=== PATIENT | male | born 1960 | race Native Hawaiian/Other Pacific Islander ===

== ENCOUNTER 2017-11-07 12:01 | Emergency (ER) | payer MEDICAID, OTHER ==
[~2017-11-07] VITALS: Ht 170.2 cm; Wt 94.5 kg
[2017-11-07] MEDS ORDERED: LIDOcaine 1% 30ml vial SQ STA (12:17)
[2017-11-07] MEDS ORDERED: HYDROcodone/acetaminophen 10/325mg tab PO ONE (12:20)
[2017-11-07] MEDS ORDERED: HYDR-565 PO (13:28)
[2017-11-07 13:43] VITALS: BP 127/74
== END 2017-11-07 13:45 | disposition home or self-care (01) ==
LOC: ER 12:02
DX: S81.812A Laceration without foreign body, left lower leg, initial encounter (principal); W31.89XA Contact with other specified machinery, initial encounter; Y93.89 Activity, other specified; Y92.89 Other specified places as the place of occurrence of the external cause; Y99.9 Unspecified external cause status
CPT/HCPCS: 12002; 73590; 99284; A6446; A6449; J3490

== ENCOUNTER 2017-11-18 10:07 | Emergency (ER) | payer MEDICAID, OTHER ==
[~2017-11-18] VITALS: Ht 171.4 cm; Wt 96.8 kg
[~2017-11-18 10:07] MED LIST: HYDR-565 PO
[2017-11-18 10:39] LABS: CLARITY,URINE CLEAR (Clear); COLOR,URINE YELLOW (Yellow); GLUCOSE, URINE NEGATIVE (Neg); KETONES,URINE NEGATIVE (Neg); LEUKOCYTE ESTERASE ,URINE NEGATIVE (Neg); NITRITES, URINE NEGATIVE (Neg); OCCULT BLOOD,URINE NEGATIVE (Neg); PROTEIN,URINE NEGATIVE (Neg); UROBILINOGEN,URINE 0.2 E.U/dL (0.2-1.0)
[2017-11-18 10:43] LABS: UA COLLECTION TYPE CLN CATCH MIDSTREAM
[2017-11-18 11:01] LABS: BASOPHILS % (AUTO) 0.6 % (0-1); EOSINOPHILS # (AUTO) 0.3 X10'3 (0-0.9); HEMATOCRIT 42.5 % (42.0-52.0); HEMOGLOBIN 14.5 g/dl (14.0-17.9); LYMPHOCYTES # (AUTO) 1.3 X10'3 (1.1-4.8); MEAN CORPUSCULAR HEMOGLOBIN 32.1 PG (27.0-31.0); MEAN CORPUSCULAR HGB CONC 34.1 % (33.0-36.5); MEAN CORPUSCULAR VOLUME 94.2 FL (78-98); MEAN PLATELET VOLUME 8.8 FL (7.4-10.4); MONOCYTES # (AUTO) 0.4 X10'3 (0-0.9); MONOCYTES % (AUTO) 9.4 % (2-12); NEUTROPHILS # (AUTO) 2.2 X10'3 (1.8-7.7); PLATELET COUNT 197 X10'3 (140-440); RED BLOOD COUNT 4.51 X10'6 (4.70-6.10); RED CELL DISTRIBUTION WIDTH 11.7 % (11.5-14.5); WHITE BLOOD COUNT 4.2 X10'3 (4.5-11.0)
[2017-11-18 11:04] LABS: ALANINE AMINOTRANSFERASE 47 U/L (12-78); ALBUMIN 3.4 G/DL (3.4-5.0); ALBUMIN/GLOBULIN RATIO 0.9 (1.1-1.5); ALKALINE PHOSPHATASE 48 IU/L (46-116); ANION GAP 5 (8-16); ASPARTATE AMINO TRANSFERASE 17 U/L (10-37); BILIRUBIN,TOTAL 0.3 MG/DL (0.1-1.0); BLOOD UREA NITROGEN 12 MG/DL (7-18); CALCIUM 8.6 MG/DL (8.5-10.1); CHLORIDE 108 MMOL/L (99-107); GLUCOSE 100 MG/DL (70-104); POTASSIUM 4.2 MMOL/L (3.5-5.1); SODIUM 142 MMOL/L (135-145); TOTAL CARBON DIOXIDE 29.2 MMOL/L (24-32); TOTAL PROTEIN 7.2 G/DL (6.4-8.2); eGFR 77 ML/MIN
[2017-11-18] MEDS ORDERED: normal saline 1000ml 1,000 ML IV ONE (12:21)
[2017-11-18] MEDS ORDERED: mag hydrox/Alum hydrox/simeth 30ml oral suspension PO ONE (12:50)
[2017-11-18] MEDS ORDERED: pantoprazole 40 MG vial IV ONE (12:50)
[2017-11-18] MEDS ORDERED: metoclopramide 5 mg/ml inj IV ONE (12:50)
[2017-11-18 13:08] LABS: LIPASE 216 U/L (73-393)
[2017-11-18] MEDS ORDERED: morphine 5 MG/ML injection IV ONE (14:00)
[2017-11-18 14:44] LABS: CRYPTOSPORIDIUM AG NEGATIVE (Neg); GIARDIA LAMBLIA AG NEGATIVE (Neg)
[2017-11-18] MEDS ORDERED: morphine 2 MG/ML inj. syringe IV ONE (14:45)
[2017-11-18] MEDS ORDERED: RANI300T4 PO (14:55)
[2017-11-18] MEDS ORDERED: OMEP40CA37 PO (14:55)
[2017-11-18 15:01] VITALS: BP 130/90
[2017-11-23] MEDS ORDERED: SUCR1ORA2 PO (09:23)
== END 2017-11-18 15:03 | disposition home or self-care (01) ==
LOC: ER 10:07
DX: K29.00 Acute gastritis without bleeding (principal); Z87.442 Personal history of urinary calculi; Z79.899 Other long term (current) drug therapy
CPT/HCPCS: 36415; 76705; 80053; 81003; 83690; 85025; 85610; 87045; 87046; 87328; 87329; 87336; 96361; 96374; 96375; 99285; C9113; J2765; J7030; J2270

== ENCOUNTER 2017-12-03 10:56 | Inpatient (IN) | payer MEDICAID, OTHER ==
[~2017-12-03] VITALS: Ht 170.2 cm; Wt 87.0 kg
[~2017-12-03 10:56] MED LIST changes: +OMEP40CA37 PO; +RANI300T4 PO; +SUCR1ORA2 PO
[2017-12-03 11:24] LABS: BASOPHILS % (AUTO) 0.4 % (0-1); EOSINOPHILS # (AUTO) 0.1 X10'3 (0-0.9); EOSINOPHILS % (AUTO) 2.1 % (0-6); HEMATOCRIT 45.3 % (42.0-52.0); HEMOGLOBIN 15.9 g/dl (14.0-17.9); LYMPHOCYTES # (AUTO) 1.4 X10'3 (1.1-4.8); MEAN CORPUSCULAR HEMOGLOBIN 32.4 PG (27.0-31.0); MEAN CORPUSCULAR HGB CONC 35.2 % (33.0-36.5); MEAN CORPUSCULAR VOLUME 92.1 FL (78-98); MONOCYTES # (AUTO) 0.5 X10'3 (0-0.9); MONOCYTES % (AUTO) 7.3 % (2-12); NEUTROPHILS # (AUTO) 4.6 X10'3 (1.8-7.7); NEUTROPHILS % (AUTO) 69.2 % (42-75); PLATELET COUNT 244 X10'3 (140-440); RED BLOOD COUNT 4.92 X10'6 (4.70-6.10); RED CELL DISTRIBUTION WIDTH 12.5 % (11.5-14.5); WHITE BLOOD COUNT 6.6 X10'3 (4.5-11.0)
[2017-12-03 11:38] LABS: ALANINE AMINOTRANSFERASE 43 U/L (12-78); ALBUMIN 3.8 G/DL (3.4-5.0); ALBUMIN/GLOBULIN RATIO 0.9 (1.1-1.5); ALKALINE PHOSPHATASE 53 IU/L (46-116); ANION GAP 9 (8-16); ASPARTATE AMINO TRANSFERASE 19 U/L (10-37); BILIRUBIN,TOTAL 0.3 MG/DL (0.1-1.0); BLOOD UREA NITROGEN 17 MG/DL (7-18); BUN/CREATININE RATIO 15.5 (5.4-32.0); CALCIUM 9.5 MG/DL (8.5-10.1); CHLORIDE 104 MMOL/L (99-107); GLUCOSE 100 MG/DL (70-104); LIPASE 254 U/L (73-393); POTASSIUM 4.5 MMOL/L (3.5-5.1); SODIUM 140 MMOL/L (135-145); eGFR 69 ML/MIN
[2017-12-03 12:26] LABS: CLARITY,URINE SLIGHTLY CLOUDY (Clear); COLOR,URINE YELLOW (Yellow); GLUCOSE, URINE NEGATIVE (Neg); KETONES,URINE NEGATIVE (Neg); LEUKOCYTE ESTERASE ,URINE NEGATIVE (Neg); NITRITES, URINE NEGATIVE (Neg); OCCULT BLOOD,URINE NEGATIVE (Neg); PROTEIN,URINE NEGATIVE (Neg); UA COLLECTION TYPE URINAL; UROBILINOGEN,URINE 0.2 E.U/dL (0.2-1.0)
[2017-12-03 12:32] LABS: BACTERIA,URINE 1+ /HPF (Neg); MUCUS STRANDS MANY /LPF (Neg); RBC,URINE 0-2 /HPF (0-2); SQUAMOUS EPITHELIAL CELL,UR MODERATE /LPF (FEW); WBC,URINE 0-4 /HPF (0-4)
[2017-12-03] MEDS ORDERED: DICY20TA17 PO (15:48)
[2017-12-03] MEDS ORDERED: SIME125C43 PO (15:50)
[2017-12-03] MEDS ORDERED: HYDROcodone/acetaminophen 10/325mg tab PO ONE (16:00)
[2017-12-03] MEDS ORDERED: acetaminophen 325mg tablet PO PRN (16:10)
[2017-12-03] MEDS ORDERED: magnesium hydroxide 30ml (MOM) UD suspension PO PRN (16:10)
[2017-12-03] MEDS ORDERED: mag hydrox/Alum hydrox/simeth 30ml oral suspension PO PRN (16:10)
[2017-12-03 17:19] VITALS: BP 119/70
[2017-12-03] MEDS: normal saline 1000ml 1,000 ML IV SCH ×2 (17:25→23:11)
[2017-12-03] MEDS: pantoprazole 40 MG vial IV SCH (17:26)
[2017-12-03] MEDS: morphine 2 MG/ML inj. syringe IV PRN ×2 (17:48→23:17)
[2017-12-03] MEDS: diatr meglu/diatrizoate 30ml oral sol.-(3 dose) bottle PO SCH (21:17)
[2017-12-03 22:05] VITALS: BP 102/65
[2017-12-04] MEDS: morphine 2 MG/ML inj. syringe IV PRN (04:11)
[2017-12-04 05:00] VITALS: BP 118/45
[2017-12-04] MEDS: normal saline 1000ml 1,000 ML IV SCH ×3 (05:23→19:51)
[2017-12-04 05:53] LABS: BASOPHILS % (AUTO) 0.5 % (0-1); EOSINOPHILS # (AUTO) 0.3 X10'3 (0-0.9); EOSINOPHILS % (AUTO) 4.9 % (0-6); HEMATOCRIT 39.2 % (42.0-52.0); HEMOGLOBIN 14.1 g/dl (14.0-17.9); LYMPHOCYTES # (AUTO) 1.7 X10'3 (1.1-4.8); LYMPHOCYTES % (AUTO) 33.6 % (21-51); MEAN CORPUSCULAR HEMOGLOBIN 33.2 PG (27.0-31.0); MEAN CORPUSCULAR HGB CONC 35.9 % (33.0-36.5); MEAN CORPUSCULAR VOLUME 92.6 FL (78-98); MEAN PLATELET VOLUME 8.4 FL (7.4-10.4); MONOCYTES # (AUTO) 0.5 X10'3 (0-0.9); MONOCYTES % (AUTO) 9.5 % (2-12); NEUTROPHILS # (AUTO) 2.6 X10'3 (1.8-7.7); NEUTROPHILS % (AUTO) 51.5 % (42-75); PLATELET COUNT 192 X10'3 (140-440); RED BLOOD COUNT 4.24 X10'6 (4.70-6.10); RED CELL DISTRIBUTION WIDTH 12.4 % (11.5-14.5); WHITE BLOOD COUNT 5.1 X10'3 (4.5-11.0)
[2017-12-04 06:19] LABS: ALANINE AMINOTRANSFERASE 42 U/L (12-78); ALBUMIN 3.1 G/DL (3.4-5.0); ALBUMIN/GLOBULIN RATIO 0.9 (1.1-1.5); ALKALINE PHOSPHATASE 45 IU/L (46-116); ANION GAP 7 (8-16); ASPARTATE AMINO TRANSFERASE 17 U/L (10-37); BILIRUBIN,TOTAL 0.4 MG/DL (0.1-1.0); BLOOD UREA NITROGEN 15 MG/DL (7-18); CALCIUM 8.5 MG/DL (8.5-10.1); CHLORIDE 105 MMOL/L (99-107); CREATININE 1.07 MG/DL (0.60-1.10); GLUCOSE 102 MG/DL (70-104); POTASSIUM 4.4 MMOL/L (3.5-5.1); SODIUM 139 MMOL/L (135-145); TOTAL CARBON DIOXIDE 26.6 MMOL/L (24-32); TOTAL PROTEIN 6.6 G/DL (6.4-8.2); eGFR 71 ML/MIN
[2017-12-04] MEDS: pantoprazole 40 MG vial IV SCH (07:04)
[2017-12-04] MEDS: diatr meglu/diatrizoate 30ml oral sol.-(3 dose) bottle PO SCH ×2 (07:04→08:46)
[2017-12-04] MEDS: HYDROcodone/acetaminophen 5mg/325mg tablet PO PRN ×3 (07:05→17:46)
[2017-12-04] MEDS: enoxaparin 40mg/0.4ml syringe SUBCUT SCH (07:05)
[2017-12-04] MEDS ORDERED: iohexol 300mg/ml 100ml inj. ONE (08:45)
[2017-12-04] MEDS: morphine 5 MG/ML injection IV PRN ×3 (09:48→19:52)
[2017-12-04 10:00] VITALS: BP 117/74
[2017-12-04] MEDS ORDERED: [UNRECOGNIZED DRUG - OTHER] PO PRN ×6 (10:10→15:13)
[2017-12-04] MEDS ORDERED: PHENOBARB PO PRN ×6 (10:10→15:13)
[2017-12-04] MEDS ORDERED: SCOP PO PRN ×6 (10:10→15:13)
[2017-12-04] MEDS ORDERED: ATROP PO PRN ×6 (10:10→15:13)
[2017-12-04] MEDS ORDERED: MAG PO PRN ×6 (10:10→15:13)
[2017-12-04] MEDS ORDERED: SIMETH PO PRN ×6 (10:10→15:13)
[2017-12-04] MEDS ORDERED: ALUM HYDROX PO PRN ×6 (10:10→15:13)
[2017-12-04 18:00] VITALS: BP 123/75
[2017-12-04 22:00] VITALS: BP 122/77
[2017-12-05] MEDS: HYDROmorphone inj. 0.5 MG/0.5 ML DISP.SYRIN IV PRN ×5 (00:19→21:33)
[2017-12-05] MEDS: normal saline 1000ml 1,000 ML IV SCH ×5 (01:28→22:48)
[2017-12-05 05:00] VITALS: BP 121/67
[2017-12-05] MEDS: ondansetron/PF 4mg/2ml inj IV PRN ×2 (05:42→17:30)
[2017-12-05 06:04] LABS: BASOPHILS % (AUTO) 0.4 % (0-1); EOSINOPHILS # (AUTO) 0.2 X10'3 (0-0.9); EOSINOPHILS % (AUTO) 4.3 % (0-6); HEMATOCRIT 39.3 % (42.0-52.0); LYMPHOCYTES # (AUTO) 1.5 X10'3 (1.1-4.8); LYMPHOCYTES % (AUTO) 31.4 % (21-51); MEAN CORPUSCULAR HEMOGLOBIN 33.1 PG (27.0-31.0); MEAN CORPUSCULAR HGB CONC 35.5 % (33.0-36.5); MEAN CORPUSCULAR VOLUME 93.2 FL (78-98); MEAN PLATELET VOLUME 8.2 FL (7.4-10.4); MONOCYTES # (AUTO) 0.5 X10'3 (0-0.9); MONOCYTES % (AUTO) 10.6 % (2-12); NEUTROPHILS # (AUTO) 2.5 X10'3 (1.8-7.7); NEUTROPHILS % (AUTO) 53.3 % (42-75); PLATELET COUNT 182 X10'3 (140-440); RED BLOOD COUNT 4.22 X10'6 (4.70-6.10); RED CELL DISTRIBUTION WIDTH 12.2 % (11.5-14.5); WHITE BLOOD COUNT 4.8 X10'3 (4.5-11.0)
[2017-12-05 06:40] LABS: ALANINE AMINOTRANSFERASE 28 U/L (12-78); ALBUMIN/GLOBULIN RATIO 0.9 (1.1-1.5); ALKALINE PHOSPHATASE 42 IU/L (46-116); ANION GAP 8 (8-16); ASPARTATE AMINO TRANSFERASE 15 U/L (10-37); BILIRUBIN,TOTAL 0.3 MG/DL (0.1-1.0); BLOOD UREA NITROGEN 8 MG/DL (7-18); BUN/CREATININE RATIO 8.9 (5.4-32.0); CALCIUM 8.7 MG/DL (8.5-10.1); CHLORIDE 105 MMOL/L (99-107); GLUCOSE 99 MG/DL (70-104); POTASSIUM 4.4 MMOL/L (3.5-5.1); SODIUM 139 MMOL/L (135-145); TOTAL CARBON DIOXIDE 26.4 MMOL/L (24-32); TOTAL PROTEIN 6.5 G/DL (6.4-8.2); eGFR 87 ML/MIN
[2017-12-05] MEDS: pantoprazole 40 MG vial IV SCH (08:45)
[2017-12-05] MEDS: enoxaparin 40mg/0.4ml syringe SUBCUT SCH (08:46)
[2017-12-05 10:00] VITALS: BP 136/85
[2017-12-05] MEDS ORDERED: iohexol 300mg/ml 100ml inj. ONE (10:40)
[2017-12-05 18:00] VITALS: BP 108/62
[2017-12-05] MEDS: HYDROcodone/acetaminophen 5mg/325mg tablet PO PRN (20:19)
[2017-12-05 22:29] VITALS: BP 110/61
[2017-12-06] MEDS: HYDROmorphone inj. 0.5 MG/0.5 ML DISP.SYRIN IV PRN ×5 (01:49→19:54)
[2017-12-06] MEDS: ondansetron/PF 4mg/2ml inj IV PRN ×4 (01:49→23:03)
[2017-12-06 05:58] LABS: BASOPHILS % (AUTO) 0.3 % (0-1); EOSINOPHILS # (AUTO) 0.1 X10'3 (0-0.9); HEMATOCRIT 38.9 % (42.0-52.0); HEMOGLOBIN 13.7 g/dl (14.0-17.9); LYMPHOCYTES # (AUTO) 1.1 X10'3 (1.1-4.8); LYMPHOCYTES % (AUTO) 22.8 % (21-51); MEAN CORPUSCULAR HEMOGLOBIN 32.8 PG (27.0-31.0); MEAN CORPUSCULAR HGB CONC 35.2 % (33.0-36.5); MEAN CORPUSCULAR VOLUME 93.1 FL (78-98); MEAN PLATELET VOLUME 8.5 FL (7.4-10.4); MONOCYTES # (AUTO) 0.4 X10'3 (0-0.9); MONOCYTES % (AUTO) 9.1 % (2-12); NEUTROPHILS # (AUTO) 3.3 X10'3 (1.8-7.7); NEUTROPHILS % (AUTO) 65.8 % (42-75); PLATELET COUNT 186 X10'3 (140-440); RED BLOOD COUNT 4.17 X10'6 (4.70-6.10); RED CELL DISTRIBUTION WIDTH 12.5 % (11.5-14.5)
[2017-12-06 06:37] LABS: ALANINE AMINOTRANSFERASE 39 U/L (12-78); ALBUMIN/GLOBULIN RATIO 0.9 (1.1-1.5); ALKALINE PHOSPHATASE 42 IU/L (46-116); ANION GAP 9 (8-16); ASPARTATE AMINO TRANSFERASE 18 U/L (10-37); BILIRUBIN,TOTAL 0.3 MG/DL (0.1-1.0); BLOOD UREA NITROGEN 7 MG/DL (7-18); BUN/CREATININE RATIO 7.1 (5.4-32.0); CALCIUM 8.3 MG/DL (8.5-10.1); CHLORIDE 103 MMOL/L (99-107); CREATININE 0.98 MG/DL (0.60-1.10); GLUCOSE 105 MG/DL (70-104); SODIUM 138 MMOL/L (135-145); TOTAL CARBON DIOXIDE 26.4 MMOL/L (24-32); TOTAL PROTEIN 6.4 G/DL (6.4-8.2); eGFR 79 ML/MIN
[2017-12-06] MEDS: pantoprazole 40 MG vial IV SCH (07:29)
[2017-12-06] MEDS: enoxaparin 40mg/0.4ml syringe SUBCUT SCH (07:30)
[2017-12-06 08:41] VITALS: BP 128/68
[2017-12-06] MEDS: HYDROcodone/acetaminophen 5mg/325mg tablet PO PRN ×2 (10:42→23:03)
[2017-12-06] MEDS: normal saline 1000ml 1,000 ML IV SCH ×2 (10:48→16:30)
[2017-12-06 12:26] VITALS: BP 129/80
[2017-12-06] MEDS ORDERED: PEG 3350/Na sulf,bicarb,Cl/KCl oral sol 4 liter bottle PO ONE (16:50)
[2017-12-06 17:00] VITALS: BP 135/64
[2017-12-06 22:00] VITALS: BP 126/66
[2017-12-07] VITALS (23 sets, daily range): BP systolic 106–144; BP diastolic 49–93
[2017-12-07] MEDS: HYDROmorphone inj. 0.5 MG/0.5 ML DISP.SYRIN IV PRN ×4 (00:57→18:56)
[2017-12-07] MEDS: normal saline 1000ml 1,000 ML IV SCH ×6 (01:02→22:05)
[2017-12-07] MEDS: ondansetron/PF 4mg/2ml inj IV PRN (05:21)
[2017-12-07 06:29] LABS: BASOPHILS % (AUTO) 0.8 % (0-1); EOSINOPHILS # (AUTO) 0.2 X10'3 (0-0.9); EOSINOPHILS % (AUTO) 4.4 % (0-6); HEMATOCRIT 38.8 % (42.0-52.0); HEMOGLOBIN 13.9 g/dl (14.0-17.9); LYMPHOCYTES # (AUTO) 1.5 X10'3 (1.1-4.8); LYMPHOCYTES % (AUTO) 30.9 % (21-51); MEAN CORPUSCULAR HEMOGLOBIN 33.2 PG (27.0-31.0); MEAN CORPUSCULAR VOLUME 92.2 FL (78-98); MEAN PLATELET VOLUME 8.6 FL (7.4-10.4); MONOCYTES # (AUTO) 0.5 X10'3 (0-0.9); MONOCYTES % (AUTO) 9.9 % (2-12); NEUTROPHILS # (AUTO) 2.6 X10'3 (1.8-7.7); PLATELET COUNT 159 X10'3 (140-440); RED CELL DISTRIBUTION WIDTH 12.7 % (11.5-14.5); WHITE BLOOD COUNT 4.8 X10'3 (4.5-11.0)
[2017-12-07] MEDS: enoxaparin 40mg/0.4ml syringe SUBCUT SCH (06:34)
[2017-12-07] MEDS: pantoprazole 40 MG vial IV SCH (06:35)
[2017-12-07 06:43] LABS: ALANINE AMINOTRANSFERASE 65 U/L (12-78); ALBUMIN 3.1 G/DL (3.4-5.0); ALBUMIN/GLOBULIN RATIO 0.9 (1.1-1.5); ALKALINE PHOSPHATASE 41 IU/L (46-116); ANION GAP 9 (8-16); ASPARTATE AMINO TRANSFERASE 37 U/L (10-37); BILIRUBIN,TOTAL 0.4 MG/DL (0.1-1.0); BLOOD UREA NITROGEN 7 MG/DL (7-18); BUN/CREATININE RATIO 7.6 (5.4-32.0); CALCIUM 8.5 MG/DL (8.5-10.1); CHLORIDE 103 MMOL/L (99-107); CREATININE 0.92 MG/DL (0.60-1.10); GLUCOSE 103 MG/DL (70-104); POTASSIUM 3.8 MMOL/L (3.5-5.1); SODIUM 139 MMOL/L (135-145); TOTAL PROTEIN 6.5 G/DL (6.4-8.2); eGFR 85 ML/MIN
[2017-12-07 06:53] LABS: MEAN CORPUSCULAR HGB CONC 35.4 % (33.0-36.5)
[2017-12-07] MEDS ORDERED: normal saline 1000ml 1,000 ML IV SCH (11:53)
[2017-12-07] MEDS ORDERED: fentaNYL/PF 50MCG/1 ML 2ML syringe IV PRN ×2 (11:55→16:35)
[2017-12-07] MEDS ORDERED: simethicone 40mg/0.6ml oral drops 30ml MC ONE (11:55)
[2017-12-07] MEDS ORDERED: MIDAZolam 5mg/5ml vial IV PRN (11:55)
[2017-12-07] MEDS ORDERED: LIDOcaine Viscous 15ml cup PO ONE (11:55)
[2017-12-07] MEDS ORDERED: LIDOcaine Viscous 15ml cup ONE (13:01)
[2017-12-07] MEDS ORDERED: fentaNYL/PF 50MCG/1 ML 2ML syringe ONE ×2 (13:01→16:28)
[2017-12-07] MEDS ORDERED: MIDAZolam 1mg/ml 10ml vial ONE (13:01)
[2017-12-07] MEDS ORDERED: midazolam 2 mg/2 ml injection ONE (16:28)
[2017-12-07] MEDS ORDERED: LIDOcaine 1%/PF (10mg/ml) 5ml vial SQ ONE (16:35)
[2017-12-07] MEDS ORDERED: midazolam 2 mg/2 ml injection IV PRN (16:35)
[2017-12-08] MEDS: HYDROmorphone inj. 0.5 MG/0.5 ML DISP.SYRIN IV PRN ×4 (04:16→19:13)
[2017-12-08 05:00] VITALS: BP 123/80
[2017-12-08 05:58] LABS: BASOPHILS % (AUTO) 0.2 % (0-1); EOSINOPHILS # (AUTO) 0.2 X10'3 (0-0.9); EOSINOPHILS % (AUTO) 3.7 % (0-6); HEMATOCRIT 39.6 % (42.0-52.0); LYMPHOCYTES # (AUTO) 1.2 X10'3 (1.1-4.8); MEAN CORPUSCULAR HEMOGLOBIN 32.7 PG (27.0-31.0); MEAN CORPUSCULAR HGB CONC 35.4 % (33.0-36.5); MEAN CORPUSCULAR VOLUME 92.5 FL (78-98); MEAN PLATELET VOLUME 8.4 FL (7.4-10.4); MONOCYTES # (AUTO) 0.6 X10'3 (0-0.9); MONOCYTES % (AUTO) 10.5 % (2-12); NEUTROPHILS # (AUTO) 3.5 X10'3 (1.8-7.7); NEUTROPHILS % (AUTO) 63.6 % (42-75); PLATELET COUNT 179 X10'3 (140-440); RED BLOOD COUNT 4.28 X10'6 (4.70-6.10); RED CELL DISTRIBUTION WIDTH 12.4 % (11.5-14.5); WHITE BLOOD COUNT 5.5 X10'3 (4.5-11.0)
[2017-12-08 06:22] LABS: ALANINE AMINOTRANSFERASE 89 U/L (12-78); ALBUMIN 3.1 G/DL (3.4-5.0); ALBUMIN/GLOBULIN RATIO 0.9 (1.1-1.5); ALKALINE PHOSPHATASE 45 IU/L (46-116); ANION GAP 8 (8-16); ASPARTATE AMINO TRANSFERASE 49 U/L (10-37); BILIRUBIN,TOTAL 0.4 MG/DL (0.1-1.0); BLOOD UREA NITROGEN 10 MG/DL (7-18); BUN/CREATININE RATIO 9.4 (5.4-32.0); CALCIUM 8.6 MG/DL (8.5-10.1); CHLORIDE 104 MMOL/L (99-107); CREATININE 1.06 MG/DL (0.60-1.10); GLUCOSE 108 MG/DL (70-104); SODIUM 139 MMOL/L (135-145); TOTAL CARBON DIOXIDE 26.9 MMOL/L (24-32); TOTAL PROTEIN 6.6 G/DL (6.4-8.2); eGFR 72 ML/MIN
[2017-12-08] MEDS: enoxaparin 40mg/0.4ml syringe SUBCUT SCH (08:00)
[2017-12-08] MEDS: pantoprazole 40 MG vial IV SCH (08:13)
[2017-12-08] MEDS: ondansetron/PF 4mg/2ml inj IV PRN (08:13)
[2017-12-08] MEDS: HYDROcodone/acetaminophen 5mg/325mg tablet PO PRN ×2 (10:26→19:13)
[2017-12-08 10:50] VITALS: BP 131/76
[2017-12-08 18:00] VITALS: BP 129/78
[2017-12-08 23:00] VITALS: BP 114/63
[2017-12-09] MEDS: HYDROcodone/acetaminophen 5mg/325mg tablet PO PRN ×3 (00:25→23:51)
[2017-12-09] MEDS: normal saline 1000ml 1,000 ML IV SCH ×3 (00:25→23:56)
[2017-12-09] MEDS: HYDROmorphone inj. 0.5 MG/0.5 ML DISP.SYRIN IV PRN ×2 (00:26→07:41)
[2017-12-09 06:00] VITALS: BP 128/74
[2017-12-09] MEDS: enoxaparin 40mg/0.4ml syringe SUBCUT SCH ×2 (07:15→07:41)
[2017-12-09] MEDS: pantoprazole 40 MG vial IV SCH (07:41)
[2017-12-09 10:00] VITALS: BP 138/88
[2017-12-09] MEDS ORDERED: gadopentetate dimeglumine 7.5 MMOL/15 ML syringe ONE (10:56)
[2017-12-09] MEDS: morphine 4 MG/ML inj SYRINge IV PRN ×3 (11:10→20:14)
[2017-12-09 18:00] VITALS: BP 142/89
[2017-12-09 22:03] VITALS: BP 117/70
[2017-12-10] MEDS: morphine 4 MG/ML inj SYRINge IV PRN ×6 (00:21→23:56)
[2017-12-10 05:00] VITALS: BP 117/73
[2017-12-10] MEDS: HYDROcodone/acetaminophen 5mg/325mg tablet PO PRN ×2 (05:08→17:47)
[2017-12-10] MEDS: pantoprazole 40 MG vial IV SCH (07:18)
[2017-12-10] MEDS: enoxaparin 40mg/0.4ml syringe SUBCUT SCH (07:53)
[2017-12-10 10:56] VITALS: BP 121/79
[2017-12-10] MEDS: normal saline 1000ml 1,000 ML IV SCH (12:29)
[2017-12-10 13:04] VITALS: BP 129/72
[2017-12-10 17:01] VITALS: BP 129/78
[2017-12-10 22:00] VITALS: BP 111/65
[2017-12-11] MEDS: normal saline 1000ml 1,000 ML IV SCH ×3 (00:04→23:41)
[2017-12-11] MEDS: morphine 4 MG/ML inj SYRINge IV PRN ×5 (03:43→21:52)
[2017-12-11] MEDS: HYDROcodone/acetaminophen 5mg/325mg tablet PO PRN ×3 (05:34→23:37)
[2017-12-11 06:00] VITALS: BP 113/73
[2017-12-11] MEDS: pantoprazole 40 MG vial IV SCH (07:57)
[2017-12-11] MEDS: enoxaparin 40mg/0.4ml syringe SUBCUT SCH (07:58)
[2017-12-11 10:00] VITALS: BP 106/65
[2017-12-11 18:46] VITALS: BP 122/82
[2017-12-11 22:00] VITALS: BP 128/79
[2017-12-12] MEDS: morphine 4 MG/ML inj SYRINge IV PRN ×3 (03:13→12:04)
[2017-12-12 05:21] LABS: BASOPHILS % (AUTO) 0.5 % (0-1); EOSINOPHILS # (AUTO) 0.3 X10'3 (0-0.9); HEMATOCRIT 38.9 % (42.0-52.0); HEMOGLOBIN 13.7 g/dl (14.0-17.9); LYMPHOCYTES # (AUTO) 1.5 X10'3 (1.1-4.8); LYMPHOCYTES % (AUTO) 28.5 % (21-51); MEAN CORPUSCULAR HEMOGLOBIN 32.6 PG (27.0-31.0); MEAN CORPUSCULAR HGB CONC 35.3 % (33.0-36.5); MEAN CORPUSCULAR VOLUME 92.4 FL (78-98); MEAN PLATELET VOLUME 8.7 FL (7.4-10.4); MONOCYTES # (AUTO) 0.6 X10'3 (0-0.9); MONOCYTES % (AUTO) 12.2 % (2-12); NEUTROPHILS # (AUTO) 2.8 X10'3 (1.8-7.7); NEUTROPHILS % (AUTO) 52.8 % (42-75); PLATELET COUNT 151 X10'3 (140-440); RED CELL DISTRIBUTION WIDTH 12.6 % (11.5-14.5); WHITE BLOOD COUNT 5.3 X10'3 (4.5-11.0)
[2017-12-12 05:44] LABS: ALANINE AMINOTRANSFERASE 67 U/L (12-78); ALBUMIN 3.1 G/DL (3.4-5.0); ALBUMIN/GLOBULIN RATIO 0.9 (1.1-1.5); ALKALINE PHOSPHATASE 44 IU/L (46-116); ANION GAP 5 (8-16); ASPARTATE AMINO TRANSFERASE 25 U/L (10-37); BILIRUBIN,TOTAL 0.2 MG/DL (0.1-1.0); BLOOD UREA NITROGEN 14 MG/DL (7-18); BUN/CREATININE RATIO 14.9 (5.4-32.0); CALCIUM 8.8 MG/DL (8.5-10.1); CHLORIDE 105 MMOL/L (99-107); CREATININE 0.94 MG/DL (0.60-1.10); GLUCOSE 111 MG/DL (70-104); LIPASE 127 U/L (73-393); POTASSIUM 4.4 MMOL/L (3.5-5.1); SODIUM 139 MMOL/L (135-145); TOTAL CARBON DIOXIDE 28.8 MMOL/L (24-32); TOTAL PROTEIN 6.5 G/DL (6.4-8.2); eGFR 83 ML/MIN
[2017-12-12] MEDS: HYDROcodone/acetaminophen 5mg/325mg tablet PO PRN ×2 (05:45→14:25)
[2017-12-12 06:00] VITALS: BP 116/64
[2017-12-12] MEDS: pantoprazole 40 MG vial IV SCH (08:28)
[2017-12-12] MEDS: enoxaparin 40mg/0.4ml syringe SUBCUT SCH (08:29)
[2017-12-12 10:00] VITALS: BP 105/64
[2017-12-12] MEDS: normal saline 1000ml 1,000 ML IV SCH (12:04)
[2017-12-12] MEDS ORDERED: OMEP20TA23 PO (15:11)
[2017-12-12] MEDS ORDERED: HYDR-565 PO (15:11)
[2017-12-12] MEDS ORDERED: DOCU-28 PO (15:11)
[2017-12-13] MEDS ORDERED: HYDR-565 PO (10:00)
== END 2017-12-12 15:50 | disposition home or self-care (01) | DRG 281 ==
LOC: ER 10:58 → ED HOLD 16:12 → ORTHO 4S 17:17 → OBSVTOIN 12-04 10:38
PROVIDERS: ADMIT Family Medicine; ATTEND Internal Medicine
PROC: BW211ZZ Computerized Tomography (CT Scan) of Abdomen and Pelvis using Low Osmolar Contrast (ICD-10-PCS; 2017-12-04)
PROC: 0DB58ZX Excision of Esophagus, Via Natural or Artificial Opening Endoscopic, Diagnostic (ICD-10-PCS; principal; 2017-12-07)
PROC: 0FB23ZX Excision of Left Lobe Liver, Percutaneous Approach, Diagnostic (ICD-10-PCS; 2017-12-07)
PROC: 0DB68ZX Excision of Stomach, Via Natural or Artificial Opening Endoscopic, Diagnostic (ICD-10-PCS; 2017-12-07)
PROC: 0DBM8ZX Excision of Descending Colon, Via Natural or Artificial Opening Endoscopic, Diagnostic (ICD-10-PCS; 2017-12-07)
DX: C78.7 Secondary malignant neoplasm of liver and intrahepatic bile duct (principal); C25.9 Malignant neoplasm of pancreas, unspecified; K29.50 Unspecified chronic gastritis without bleeding; D12.4 Benign neoplasm of descending colon; G89.29 Other chronic pain; K57.30 Diverticulosis of large intestine without perforation or abscess without bleeding; K64.8 Other hemorrhoids; R63.4 Abnormal weight loss; Z68.30 Body mass index [BMI] 30.0-30.9, adult
CPT/HCPCS: 36415; 43239; 45380; 47000; 71260; 74176; 74177; 74183; 76942; 80053; 81001; 82378; 83690; 85025; 86301; 87045; 87046; 87070; 89055; 99152; 99153; 99285; A4620; A9579; C9113; G0378; G0500; J1170; J1650; J2250; J2270; J2405; J3010; J7030; Q9963; Q9967

== ENCOUNTER 2017-12-13 08:15 | Emergency (ER) | payer MEDICAID, OTHER ==
[~2017-12-13] VITALS: Ht 170.2 cm; Wt 89.9 kg
[~2017-12-13 08:15] MED LIST changes: +DICY20TA17 PO; +DOCU-28 PO; +OMEP20TA23 PO; -OMEP40CA37 PO; -RANI300T4 PO; +SIME125C43 PO; -SUCR1ORA2 PO
[2017-12-13] MEDS ORDERED: morphine 4 MG/ML inj SYRINge IM ONE (09:45)
[2017-12-13] MEDS ORDERED: HYDR-565 PO (10:00)
[2017-12-13 10:11] VITALS: BP 113/76
== END 2017-12-13 10:18 | disposition home or self-care (01) ==
LOC: ER 08:18
DX: Z76.0 Encounter for issue of repeat prescription (principal); Z79.899 Other long term (current) drug therapy
CPT/HCPCS: 96372; 99283; J2270